=== PATIENT | female | born 1990 | race Caucasian/White ===

== ENCOUNTER → 2018-02-26 | Outpatient (CLI) | payer OTHER ==
[~2018-02-26] MED LIST: ACHD5005 PO
--- NOTE | 2018-02-26 12:24 | Diagnostic Imaging Report ---
EXAM: RIGHT UPPER QUADRANT ULTRASOUND DATE: 02/26/2018. COMPARISON: None. INDICATION: 28-year-old male, right upper quadrant abdominal pain. PROCEDURE: Two-dimensional grayscale and color doppler ultrasound examination of the right upper quadrant is performed. FINDINGS: Liver: The liver is of normal size and echotexture without solid or cystic masses. Bile ducts and gallbladder: There are multiple shadowing foci within the gallbladder lumen consistent with gallstones. The gallbladder is not distended. There is no pericholecystic fluid. There is no abnormal gallbladder wall thickening. The gallbladder wall measures 0.3 cm. There is no intrahepatic or extrahepatic biliary ductal dilation. The common bile duct measures 0.5 cm. Right kidney: Unremarkable right kidney. No hydronephrosis. The right kidney measures 11.9 cm x 5.7 cm x 4.1 cm. Pancreas: The pancreas is not well seen. IMPRESSION: 1. Cholelithiasis without evidence of acute cholecystitis. 2. No biliary ductal dilation. 3. The pancreas is not well seen. Dictated by: Dictated on workstation # [id number]
--- NOTE | 2018-02-26 12:51 | History & Physicial ---
History of Present Illness History of Present Illness Reason for visit/HPI RUQ pain radiating around the costal margin to the back over a 6 day period. Currently she is pain free. Evaluation is confirmed uncomplicated gallstones with normal liver function tests. Amylase and lipase are normal Date of Admission 03/02/18 Date Seen by Provider: Feb 26, 2018 Time Seen by Provider: 12:47 I consulted on this patient on 02/26/18 12:46 Attending Physician Asim Saucedo MD Admitting Physician No,Local Physician Consult Allergies and Home Medications Patient Home Medication List Home Medication List Reviewed: Yes Past Lrqukuq-Roabie-Nrifvs Hx Patient Social History Marrital Status: Employed/Student: unemployed Smoking Status: Former Smoker Recent Foreign Travel: No Contact w/other who traveled: No Surgeries Yes Appendectomy Respiratory No Cardiovascular No Neurological No Reproductive System Hx Reproductive Disorders: No Genitourinary No Gastrointestinal Yes Gall Bladder Disease Musculoskeletal No Endocrine History of Endocrine Disorders: No HEENT History of HEENT Disorders: No Cancer No Constitutional: no symptoms reported EENTM: no symptoms reported Respiratory: no symptoms reported Gastrointestinal: see HPI Genitourinary: no symptoms reported Musculoskeletal: no symptoms reported Skin: lesions Psychiatric/Neurological: No Symptoms Reported Physical Exam Vital Signs Capillary Refill : General Appearance: No Apparent Distress Neck: Normal Inspection Respiratory: Lungs Clear Cardiovascular: Regular Rate, Rhythm Gastrointestinal: Non Tender, Soft Extremity: Normal Inspection Neurologic/Psychiatric: Alert, Oriented x3 Skin: Warm/Dry Comments 1 cm of furuncle over the left upper eyelid Assessment/Plan Assessment and Plan Lady with symptomatic gallstones. Normal liver function, amylase and lipase. Small furuncle over the left upper eyelid. Regard to gallstones, I have offered robotic-assisted cholecystectomy with cholangiogram. The operative details, expected recovery, complications of bile leak, wound infection and the potential for postoperative ERCP, should choledocholithiasis be identified have been discussed explicitly. With regard to the floor and go, I have suggested observation for now. Admission Diagnosis Admission Status: Other (Same Day Surgery) ASIM SAUCEDO MD Feb 26, 2018 12:51
== END ==
LOC: EDSEX → CARD 11:31
PROVIDERS: ATTEND Surgery
DX: R10.11 Right upper quadrant pain (principal)
CPT/HCPCS: 76705

== ENCOUNTER → 2018-03-01 | Outpatient (CLI) | payer OTHER | LOC: EDSEX → PREOP 12:48 | PROVIDERS: ATTEND Surgery | DX: Z01.818 Encounter for other preprocedural examination (principal); K80.20 Calculus of gallbladder without cholecystitis without obstruction ==

== ENCOUNTER 2018-03-02 10:26 | Day surgery (SDC) | payer OTHER, MEDICAID ==
[~2018-03-02] VITALS: Ht 160 cm; Wt 95.3 kg
--- NOTE | 2018-03-02 10:40 | Progress Note-Pre Operative ---
Pre-Operative Progress Note H&P Reviewed The H&P was reviewed, patient examined and no changes noted. Date Seen by Provider: Feb 26, 2018 Time Seen by Provider: 11:50 Date H&P Reviewed: Mar 02, 2018 Time H&P Reviewed: 10:39 Pre-Operative Diagnosis: Gallstones ASIM SAUCEDO MD Mar 02, 2018 10:40 am
[2018-03-02] MEDS ORDERED: ROCURONIUM 10 MG/ML 5 ML SYRINGE IV ONE (10:42)
[2018-03-02] MEDS ORDERED: LIDOCAINE PF 2% 5 ML (XYLOCAINE) VIAL ONE (10:42)
[2018-03-02] MEDS ORDERED: SEVOFLURANE (ULTANE) 15 ML INHAL SOLN ONE ×5 (10:42→12:58)
[2018-03-02] MEDS ORDERED: fentaNYL INJECTION 100 MCG/2 ML AMP ONE ×2 (10:42→12:47)
[2018-03-02] MEDS ORDERED: ONDANSETRON 4 MG/2 ML (SDV) Z0FRAN ONE (10:42)
[2018-03-02] MEDS ORDERED: MIDAZOLAM 2 MG/2 ML (VERSED) VIAL IV ONE (10:45)
[2018-03-02] MEDS ORDERED: FAMOTIDINE 20MG/2ML IV (PEPCID) IV ONE (10:45)
[2018-03-02] MEDS ORDERED: BUP/EPI 0.5% 1:200,000 (SENSORCAINE) 30 ML VIAL ONE (11:00)
[2018-03-02 11:05] VITALS: BP 110/74
[2018-03-02] MEDS: LACTATED RINGERS 1,000 ML IV PRN ×2 (11:11→12:44)
[2018-03-02] MEDS ORDERED: CATHETER FLUSH 10 ML SYR IV PRN (11:30)
[2018-03-02] MEDS ORDERED: ANCEF 2 GM/50 ML PRE-MIXED IVPB IV ONE (11:30)
[2018-03-02] MEDS ORDERED: metroNIDAZOLE 500 MG/100 ML IVPB (PRE-MIX) IV ONE (11:30)
[2018-03-02] MEDS ORDERED: proPOfol 200 MG/20 ML (DIPRIVAN) VIAL IV ONE (12:15)
[2018-03-02] MEDS ORDERED: PHENYLEPHRINE 100 MCG/ML 10 ML (ANESTHESIA) SYR ONE (12:15)
[2018-03-02] MEDS ORDERED: ceFAZolin 2 GM/50 ML PRE-MIX IVPB IV ONE (12:30)
[2018-03-02] MEDS ORDERED: NEOSTIGMINE 1 MG/ML 5 ML SYRINGE ONE (12:57)
[2018-03-02] MEDS ORDERED: GLYCOPYRROLATE 0.2 MG/ML (ROBINUL) 2 ML VIAL ONE (12:57)
--- NOTE | 2018-03-02 13:14 | Operative Report ---
Operative Report Date of Procedure/Surgery Mar 02, 2018 Surgeon (s) ASIM SAUCEDO MD Representative Government Relations (s): N/A Post-Operative Diagnosis Same Procedure Performed Robotic-assisted cholecystectomy Description of Procedure Anesthesia Type: General Estimated blood loss (mL): Minimal Specimen(s) collected/removed Gallbladder Description of the Procedure Indication for the procedure: This lady presented with symptomatic gallstones. She was offered cholecystectomy with possible cholangiogram, using minimally invasive technique with the robotic assistance. Informed consent was obtained after reviewing the operative details and complications of wound infection, bile leak and cardio-respiratory dysfunction Description of the procedure: She was placed supine on the operative table and general anesthesia induced using an endotracheal tube. 2 g of Ancef and 500 mg of Flagyl were administered intravenously as prophylaxis against wound infection. Sequential compression devices were placed around her legs, to minimize the risk of venous thrombosis. Abdomen was prepared and draped in the usual sterile manner. A subumbilical incision was made and pneumoperitoneum established using a Veress needle. Intra -abdominal pressure was maintained at 15 mmHg, using carbon dioxide insufflation. A 12 mm trocar was placed and anatomy visualized using the high definition, 3-dimensional laparoscope associated with da Pablo system. Under direct view, I placed an 8 mm trocar over each side of the abdomen, followed by a 5 mm trocar over the left subcostal region. The patient was then turned into reverse Trendelenburg position, with the right side tilted up. The robotic system was then docked in place. Gallbladder was rather thick elongated and packed with stones. The fundus was retracted cephalad and the infundibulum grasped with Cadiere forceps. Thickened tissue around Calot's triangle was incised using the hook cautery, delineating the cystic duct and the artery. I made an attempt to obtain cholangiogram. The tip of the Taut catheter could not be controlled adequately and therefore further attempts were abandoned. Cystic duct was then controlled using a total of 3 locking clips. Cystic artery was divided between similar clips and a cholecystectomy completed using the hook cautery. Hemostasis was optimized using the same device. Subhepatic space was irrigated with saline and the gallbladder placed in an Endo Catch bag, being removed via the subumbilical incision. The fascia over this incision was closed using #1 Vicryl. Skin incisions were closed using 4-0 Vicryl, in a subcuticular fashion. 0.5 percent Marcaine with epinephrine was infiltrated along the incisions, both pre-emptively and at the conclusion of the operation. She tolerated the procedure well, was extubated in the operating room and taken to the recovery room in a stable condition. Findings of the Procedure See op report Allergies and Home Medications Allergies Coded Allergies: No Known Drug Allergies (Unverified , 03/02/18) Patient Home Medication List Home Medication List Reviewed: Yes ASIM SAUCEDO MD Mar 02, 2018 1:14 pm
[2018-03-02] MEDS ORDERED: ACHD5005 PO (13:15)
--- NOTE | 2018-03-02 13:15 | Discharge Inst-Simple/Standard ---
Discharge Inst-Standard Discharge Medications New, Converted or Re-Newed RX: RX on Chart Patient Instructions/Follow Up Plan of Care/Instructions/FU: Incentive spirometry. Band-Aids off in 48 hours. Follow-up in 3 weeks Activity as Tolerated: Yes Discharge Diet: No Restrictions ASIM SAUCEDO MD Mar 02, 2018 1:15 pm
[2018-03-02] MEDS ORDERED: MEPERIDINE (DEMEROL) INJ 50 MG/ML IVP PRN (13:30)
[2018-03-02] MEDS ORDERED: ONDANSETRON 4 MG/2 ML (SDV) Z0FRAN IVP PRN (13:30)
[2018-03-02] MEDS ORDERED: HYDROmorphone 2 MG/ML VIAL (DILAUDID) IVP PRN (13:30)
[2018-03-02] MEDS: morphine INJ 10 MG/ML 1ML (SYR OR VIAL) IVP PRN ×3 (13:45→13:53)
--- NOTE | 2018-03-02 14:08 | Anesthesia-General Post-Op ---
General Patient Condition Mental Status/LOC: Same as Preop Cardiovascular: Satisfactory Nausea/Vomiting: Absent Respiratory: Satisfactory Pain: Controlled Complications: Absent Post Op Complications Complications None Follow Up Care/Instructions Patient Instructions None needed. Anesthesia/Patient Condition Patient Condition Patient is doing well, no complaints, stable vital signs, no apparent adverse anesthesia problems. SERGE RUBIN DO Mar 02, 2018 14:08
[2018-03-02 14:30] VITALS: BP 115/79
[2018-03-02] MEDS ORDERED: HYDROcodone/APAP 5 MG/325 MG (LORTAB) TAB PO ONE (14:50)
[2018-03-02 15:00] VITALS: BP 120/81
[2018-03-02 15:30] VITALS: BP 121/79
[2018-03-02 16:00] VITALS: BP 121/79
[2018-03-02 16:40] VITALS: BP 121/79
== END 2018-03-02 16:40 | disposition home or self-care (01) ==
LOC: EDSEX 10:26 → SDC 10:26
PROVIDERS: ATTEND Surgery
DX: K80.10 Calculus of gallbladder with chronic cholecystitis without obstruction (principal); K21.9 Gastro-esophageal reflux disease without esophagitis; F17.210 Nicotine dependence, cigarettes, uncomplicated
CPT/HCPCS: 84703; 87081; 88304; 94664